=== PATIENT | female | born 1960 | race Caucasian/White ===

== ENCOUNTER 2018-03-20 09:26 | Day surgery (SDC) | payer OTHER ==
[~2018-03-20 09:26] MED LIST: PROPOFOL 500 MG/50 ML EMU IV ONE
[2018-03-20 12:32] VITALS: BP 140/77; PULSE 77; RESP 20; TEMP 97.7; O2SAT 96
== END 2018-03-20 12:40 | disposition home or self-care (01) | DRG 951 ==
LOC: SURG 09:26
PROVIDERS: ATTEND Surgery
DX: Z12.11 Encounter for screening for malignant neoplasm of colon (principal); K21.9 Gastro-esophageal reflux disease without esophagitis; Z86.010 Personal history of colon polyps
CPT/HCPCS: J2001; J2704